=== PATIENT | male | born 1995 | race Caucasian/White ===

== ENCOUNTER 2016-08-11 12:10 | Emergency (ER) | payer MEDICAID, OTHER ==
[~2016-08-11] VITALS: Ht 152.4 cm; Wt 89.0 kg
[2016-08-11 12:14] VITALS: Ht 152.4 cm; Wt 89.0 kg
[2016-08-11] MEDS ORDERED: D-ME473S2 PO (14:20)
[2016-08-11] MEDS ORDERED: IBUP-1542 PO (14:20)
[2016-08-11] MEDS ORDERED: AZIT250T94 PO (14:20)
--- NOTE | 2016-08-11 14:23 | ERD ---
ER Documentation Chief Complaint Date/Time DATE: 08/11/16 TIME: 14:[address],cough, chest congestion HPI This 21-year-old male presents with productive cough last 3 days. He also has loss of voice. He denies fevers. He has some mild in 2 chest pain with coughing but no sustained. Denies abdominal pain or vomiting. ROS All systems reviewed and are negative except as per history of present illness. Medications Home Meds Active Scripts Dextromethorphan Hb-Promethazine Hcl* (Promethazine DM* Syrup) 473 Ml Syrup, 5 ML PO Q6 Y for COUGH for 5 Days, ML Prov:KARTIK WHITAKER MD 08/11/16 Ibuprofen* (Motrin*) 600 Mg Tab, 600 MG PO Q6, #15 TAB Prov:KARTIK WHITAKER MD 08/11/16 Azithromycin* (Zithromax*) 250 Mg Tablet, 250 MG PO .ZPACK DIRECTED, #6 TAB TAKE 500 MG (2 TABS) THE FIRST DAY THEN 250 MG (1 TAB) DAYS 2-5 Prov:KARTIK WHITAKER MD 08/11/16 Allergies Allergies: Coded Allergies: No Known Allergy (Unverified , 08/11/16) PMhx/Soc Medical and Surgical Hx: pt denies Medical Hx, pt denies Surgical Hx Hx Alcohol Use: No Hx Substance Use: No Hx Tobacco Use: No Smoking Status: Never smoker Physical Exam Vitals Vital Signs Date Time Temp Pulse Resp B/P Pulse Ox O2 Delivery O2 Flow Rate FiO2 08/11/16 12:14 98.4 91 20 134/78 99 Physical Exam Const: [] Alert, not ill-appearing. Speaking complete sentences. Head: Atraumatic Eyes: Normal Conjunctiva ENT: Normal External Ears, Nose and Mouth. TMs and oropharynx normal. Neck: Full range of motion..~ No meningismus. Resp: Clear to auscultation bilaterally Cardio: Regular rate and rhythm, no murmurs Abd: Soft, non tender, non distended. Normal bowel sounds Skin: No petechiae or rashes Back: No midline or flank tenderness Ext: No cyanosis, or edema Neur: Awake and alert Psych: Normal Mood and Affect Results 24 hrs Current Medications Medications (Trade) Dose Ordered Sig/João Route PRN Reason Start Time Stop Time Status Last Admin Dose Admin Ibuprofen (Motrin) 600 mg ONCE ONCE PO 08/11/16 14:30 08/11/16 14:31 08/11/16 14:16 Prednisone (Prednisone) 40 mg ONCE ONCE PO 08/11/16 14:30 08/11/16 14:31 08/11/16 14:16 Procedures/MDM Patient presents with URI symptoms for last 3 days. Given the productive cough which she with Zithromax, promethazine and ibuprofen. He was given prednisone 40 mg by mouth and ibuprofen for mild laryngitis. There is no evidence of airway obstruction, abscess, hypoxemia, respiratory distress. The patient was stable with no new complaints during the ER course. Clinically, there is no current evidence to suggest meningitis, sepsis, acute abdomen, pneumonia, acute coronary syndrome, pulmonary embolism, or any other emergent condition appearing to require further evaluation or hospitalization. The patient should certainly return for any new or worsening symptoms per the aftercare instructions. They should otherwise follow-up with her primary care doctor for reevaluation this week. Departure Diagnosis: Primary Impression: Bronchitis Condition: Stable Patient Instructions: Acute Bronchitis Additional Instructions: Recheck for new or worsening symptoms or primary care doctor. KARTIK WHITAKER MD August 11, 2016 14:23
[2016-08-11] MEDS ORDERED: predniSONE 20 MG TAB PO ONE (14:30)
[2016-08-11] MEDS ORDERED: IBUPROFEN 600 MG TAB PO ONE (14:30)
== END 2016-08-11 22:35 | disposition home or self-care (01) ==
LOC: FTE 12:10
DX: J20.9 Acute bronchitis, unspecified (principal)
CPT/HCPCS: J7512; Z7502; Z7610; 99284